=== PATIENT | male | born 1975 | race Caucasian/White ===

== ENCOUNTER → 2019-11-07 17:40 | Outpatient (CLI) | payer BC, SELFPAY ==
[2019-11-07 18:11] LABS: Basophils # 0.1 K/mm3 (0-0.2); Basophils % 0.8 % (0.1-2.0); Eosinophils # 0.1 K/mm3 (0.0-0.4); Eosinophils % 1.4 % (0.1-12.0); Hematocrit 51.6 % (42.0-52.0); Hemoglobin 17.9 g/dL (14.1-18.0); Lymphocytes # 2.6 K/mm3 (0.7-4.5); Lymphocytes % 31.1 % (10-50); Mean Corpuscular HGB Conc 34.7 g/dL (31.8-35.4); Mean Corpuscular Hemoglobin 32.7 pg (27.0-31.2); Mean Corpuscular Volume 94.1 fl (80-94); Mean Platelet Volume 8.3 fl (7.4-10.4); Monocytes # 0.3 K/mm3 (0.1-1.0); Neutrophils # 5.3 K/mm3 (1.8-7.8); Neutrophils % 62.7 % (37.0-80.0); Platelet Count 325 K/mm3 (142-424); Red Blood Count 5.48 M/mm3 (4.60-6.20); Red Cell Distribution Width 13.9 % (11.5-17.5); White Blood Count 8.4 K/mm3 (4.8-10.8)
[2019-11-07 18:57] LABS: Alanine Aminotransferase 61 U/L (12-78); Albumin Level 4.8 g/dl (3.5-5.0); Albumin/Globulin Ratio 1.5 (1.1-1.8); Alkaline Phosphatase 90 U/L (38-126); Anion Gap 16.8 mEq/L (5-15); Aspartate Amino Transferase 35 U/L (17-59); Blood Urea Nitrogen 15 mg/dl (9-20); Calcium 10.2 mg/dl (8.4-10.2); Carbon Dioxide 27 mmol/L (22.0-30.0); Chloride 105 mmol/L (98-107); Estimated Glomerular Filt Rate 82 ml/min (>60); GFR (African American) 99 ML/MIN (>60); Globulin 3.2 g/dL (1.3-3.2); Glucose 105 mg/dl (74-100); Potassium 4.8 mmoL/L (3.5-5.1); Sodium 144 mmol/L (136-145)
[2019-11-07 19:28] LABS: Thyroid Stimulating Hormone 0.45 uIU/mL (0.465-4.68)
[2019-11-07 19:47] LABS: Vitamin B12 701 pg/mL
== END ==
PROVIDERS: Visit Provider Family Medicine
DX: H50.00 Unspecified esotropia (principal); H49.20 Sixth [abducent] nerve palsy, unspecified eye; H53.2 Diplopia
CPT/HCPCS: 80053; 82607; 84436; 84443; 85025

== ENCOUNTER → 2019-11-20 11:10 | Outpatient (CLI) | payer BC, SELFPAY ==
--- NOTE | 2019-11-20 11:10 | MR_ITS ---
PROCEDURE: MR HEAD/BRAIN WO CON CLINICAL INDICATION: left lateral rectus muscle Pt c/o blurred vision with h/a x 1 week. COMPARISON: No exams were available for comparison TECHNIQUE: Routine multiplanar multi echo sequences are performed without gadolinium enhancement. FINDINGS: No midline shift, mass effect, intracranial hemorrhage, or hydrocephalus. The cerebellopontine angle, cerebellum, and brainstem have an unremarkable appearance. There is a small focal area of increased T2 signal in the subcortical region of the left frontal lobe and also a small T2 white matter hyperintensity in the right frontal lobe deep white matter. These are nonspecific. There is mucosal thickening of the ethmoid sinuses. A retention cyst is present in the floor the left maxillary sinus at 17 mm. There is mild mucosal thickening of the maxillary sinuses on both sides and also of the sphenoid sinus. No mastoid effusion is evident. The pituitary, optic chiasm, corpus callosum, and craniocervical junction have an unremarkable appearance. IMPRESSION: 1. There are 2 nonspecific T2 white matter hyperintensities 1 in the right frontal lobe and 1 in the left frontal lobe. These are nonspecific. Differential diagnosis would include ischemic gliotic foci from microvascular disease, sequela from migraine headache, or demyelinating process. Three month follow-up may confirm stability. 2. Mild sinus disease. 3. Otherwise negative MRI of the brain without contrast Dictated by: Florentino Kimbrough MD 11/21/2019 12:36 Florentino Kimbrough MD in [place] 11/21/2019 12:36
== END ==
PROVIDERS: PCP Family Medicine; Visit Provider Family Medicine
DX: H49.20 Sixth [abducent] nerve palsy, unspecified eye (principal); H53.2 Diplopia
CPT/HCPCS: 70551

== ENCOUNTER → 2019-11-28 12:53 | Outpatient (CLI) | payer BC, SELFPAY ==
--- NOTE | 2019-11-28 12:54 | MR_ITS ---
PROCEDURE: MR ANGIO HEAD WO CON CLINICAL INDICATION: new onset visual changes,migraine Pt. c/p blurred vision and h/a. Prior MRI Brain done 11/20/2019 COMPARISON: No exams were available for comparison TECHNIQUE: 3D [id number] images are obtained with multi slab reformats. FINDINGS: No aneurysm, AVM, or major intracranial occlusive process evident. Single-shot MRV shows decreased signal in the posterior and inferior aspect of the sagittal sinus. This could be technical in nature. If there is any concern for sinus thrombosis then CT angiogram may provide further evaluation. IMPRESSION: 1. Negative MRA of the brain. 2. Incomplete visualization of the posterior inferior aspect of the sagittal sinus nonspecific possibly artifactual and could be better evaluated with CT angiogram if clinically desired Dictated by: Florentino Kimbrough MD 11/29/2019 12:50 Florentino Kimbrough MD in [place] 11/29/2019 12:50
[2019-11-28 15:06] LABS: Cholesterol 245 mg/dl (140-200); HDL Cholesterol 53 mg/dl (40-60); Triglycerides 192 mg/dl (30-150); VLDL Cholesterol 38 mg/dL (0-40)
[2019-11-28 15:23] LABS: Direct LDL Cholesterol 154.62 mg/dL (100-129)
[2019-11-28 15:57] LABS: Hemoglobin A1C 5.7 % (4.0-6.0)
[2019-11-28 18:56] LABS: Chol/HDL Ratio 4.6 (1-3.5)
[2019-12-05 14:58] LABS: AChR Binding Abs 0.03 nmol/L (0.00-0.24); AChR Blocking Abs 24 % (0-25); AChR Modulating Ab <12 % (0-20); Anti-Striation (muscle) Abs Negative (Neg:<1:40)
== END ==
PROVIDERS: PCP Family Medicine; Visit Provider Specialist
DX: G43.009 Migraine without aura, not intractable, without status migrainosus (principal); H49.12 Fourth [trochlear] nerve palsy, left eye; R73.09 Other abnormal glucose; Z68.32 Body mass index [BMI] 32.0-32.9, adult; H49.10 Fourth [trochlear] nerve palsy, unspecified eye; R51 Headache
CPT/HCPCS: 36415; 70544; 80061; 83036; 84238; 86255

== ENCOUNTER 2023-11-04 13:18 | Emergency (ER) | payer BC, SELFPAY ==
[2023-11-04 13:25] VITALS: BP 165/95; PULSE 97; RESP 18; TEMP 37.8; O2SAT 98; BMI 25.1
--- NOTE | 2023-11-04 13:29 | EXP.UTC ---
Discharge Plan Disposition Patient Disposition: Home, Self-Care Condition: Good Prescriptions Prescriptions: New doxycycline monohydrate 100 mg tablet 100 mg PO BID Qty: 20 0RF prednisone 20 mg tablet 20 mg PO BID Qty: 10 0RF promethazine-DM 6.25-15 mg/5 mL syrup 5 ml PO Q6H PRN (Reason: Cough) Qty: 180 0RF albuterol sulfate 90 mcg/actuation HFA aerosol inhaler 2 inh inhalation Q8H PRN (Reason: shortness of breath or wheezing) Qty: 8.5 3RF No Action omeprazole [Prilosec] 20 mg Capsule,Delayed Release(Dr/Ec) 20 mg PO DAILY loratadine [Claritin] 10 mg Tablet 10 mg PO DAILY Referrals Follow up/Referrals: Ramon Bruce APRN [Primary Care Provider] - See instructions Clinical Impressions Clinical Impression: Bronchitis Instructions Patient Instructions: DI for Acute Bronchitis Print Language Print Language: Upper Sorbian Discharge ED Provider: Starr Pittman [facility] [place] HPI General Stated complaint: body ache chest congestion fever suazo Time Seen by Provider: 11/04/23 13:33 History of Present Illness Provider Complaint: Body aches, chills, fever, cough, congestion. Abrupt onset last night. Cough productive of brown-green sputum. Chest feels tight. Onset (ago): day(s) (1) Location: chest Relieving factors: none Exacerbating factors: none Associated symptoms: cough Treatments prior to arrival: none Related Data Home Medications ?Medication ?Instructions ?Recorded ?Confirmed loratadine 10 mg tablet (Claritin) 10 mg PO DAILY 11/04/23 11/04/23 omeprazole 20 mg capsule,delayed 20 mg PO DAILY 11/04/23 11/04/23 release Previous Rx's ?Medication ?Instructions ?Recorded albuterol sulfate 90 mcg/actuation 2 inh inhalation Q8H PRN shortness 11/04/23 aerosol inhaler of breath or wheezing #8.5 grams doxycycline monohydrate 100 mg 100 mg PO BID #20 tabs 11/04/23 tablet prednisone 20 mg tablet 20 mg PO BID #10 tabs 11/04/23 promethazine-DM 6.25 mg-15 mg/5 mL 5 ml PO Q6H PRN Cough #180 mL 11/04/23 oral syrup Allergies Allergy/AdvReac Type Severity Reaction Status Date / Time No Known Allergies Allergy Verified 12/12/19 14:32 [facility] Disclaimer: The information contained in this section may have been updated after the patient was seen, as this information can be updated by other users. Medical History (Updated 11/04/23 @ 13:40 by JESSIE Figueredo) Kidney stone Surgical History (Updated 11/04/23 @ 13:34 by Bridget Kelley RN) History of appendectomy Social History Smoking Status: Former smoker alcohol intake: never substance use type: denies use current occupational status: employed Travel in the last 8 weeks: None household members: significant other housing: house ROS Obtained: Yes All systems reviewed & no additional complaints except as documented Constitutional Constitutional: Reports body ache, Reports chills and Reports fever(s) Respiratory Respiratory: Reports chest congestion and Reports cough Physical Exam General General appearance: alert and in no apparent distress Head Head exam: atraumatic, normocephalic and normal inspection Eye Eye exam: Present normal appearance, PERRL and EOMI ENT ENT exam: Present normal exam, normal oropharynx, mucous membranes moist, TM's normal bilaterally and normal external ear exam Neck Neck exam: Present normal inspection, full ROM and trachea midline; Absent meningismus or lymphadenopathy Chest Chest inspection: Present normal inspection and symmetric chest wall rise; Absent tenderness Respiratory Respiratory exam: Absent respiratory distress Expanded Respiratory Exam Location: Lower: wheezes and rhonchi Cardiovascular Cardiovascular exam: Present regular rate and normal rhythm; Absent JVD Abdominal Exam Abdominal exam: Present soft and normal bowel sounds; Absent distention, tenderness or guarding Extremities Exam Extremities exam: Present normal inspection, full RO
[2023-11-04 13:42] VITALS: BP 165/95; PULSE 97; RESP 18; TEMP 37.8; O2SAT 98
[2023-11-04 14:15] LABS: Influenza A, PCR Not Detected (NotDetected); Influenza B, PCR Not Detected (NotDetected)
[2023-11-04 15:33] LABS: Coronavirus 19, PCR Detected (NotDetected)
== END 2023-11-04 13:46 | disposition home or self-care (01) ==
PROVIDERS: Emergency Provider Physician Assistant; PCP Nurse Practitioner Family
DX: U07.1 COVID-19 (principal); J20.9 Acute bronchitis, unspecified; R50.9 Fever, unspecified
CPT/HCPCS: 87636; 99204; 99212; G0463

== ENCOUNTER 2024-07-22 07:51 | Day surgery (SDC) | payer BC, SELFPAY ==
[2024-07-19 15:05] VITALS: BMI 22.3
[2024-07-22 08:40] VITALS: BP 170/113; PULSE 83; RESP 18; TEMP 36.3; O2SAT 99
[2024-07-22] MEDS: LACTATED RINGERS 1000ML 1,000 ML 50 ML IV (08:49)
[2024-07-22 09:19] VITALS: O2SAT 98
--- NOTE | 2024-07-22 09:21 | P.HP_ITS ---
History of Present Illness *Admission Date: 07/22/24 *Reason for visit:: Dyspepsia, reflux, bloating, nausea, weight loss and blood in stool *History of present illness: Mr. Puentes is a 48-year-old gentleman who is here for diagnostic EGD and colonoscopy. He has had a lot of nausea, vomiting, heartburn, bloating, generalized abdominal pain and weight loss. He has also noted blood in his stool. The examination is deemed medically necessary for diagnostic EGD and colonoscopy. The patient has been seen, interviewed and examined prior to the procedure by both myself and the anesthesia provider. [facility] Disclaimer: The information contained in this section may have been updated after the patient was seen, as this information can be updated by other users. Medical History Kidney stone Surgical History History of appendectomy Family History Other Family history of diabetes mellitus type II Family history of hepatitis Family history of hypertension Social History Smoking Status: Former smoker alcohol intake: never substance use type: denies use current occupational status: employed Travel in the last 8 weeks?: None household members: significant other housing: house caffeine: Yes Have you lived/traveled outside [place] in past 30 days?: No Contact w/someone who lives/traveled outside [place] past 30 days?: No Exposure to someone with infectious disease in past 14 days?: No Do you have a fever (greater than 100.4 F or 38 C)?: No Have you tested positive for COVID-19?: No Exposed to someone with COVID-19 in past 14 days?: No Do you have a sore throat?: No Do you have a cough?: No Do you have any weakness?: No Are you experiencing any nausea/vomitting?: No Do you have any diarrhea?: No Are you experiencing any unusual bleeding?: No Do you have any muscle aches/pain?: No Do you have any abdominal pain?: No Are you experiencing loss of taste or smell?: No Other Medical History Have you received the Pneumonia Vaccine: No Review of Systems Review of Systems Review of systems (narrative): Negative *Cardiovascular Comments: Negative *Gastrointestinal Comments: Negative *Genitourinary Comments: Negative *Musculoskeletal Comments: Negative *Neurologic Comments: Negative Meds Home Medications and Allergies Home Medications ?Medication ?Instructions ?Recorded ?Confirmed ?Type loratadine 10 mg tablet (Claritin) 10 mg PO DAILY 11/04/23 07/22/24 History omeprazole 20 mg capsule,delayed 20 mg PO DAILY 11/04/23 07/22/24 History release acetaminophen 500 mg tablet 500 mg PO Q6H PRN Mild Pain (Scale 07/15/24 07/22/24 History (Tylenol Extra Strength) Score 1-4) ibuprofen 125 mg-acetaminophen 250 1 tab PO Q8H PRN Mild Pain (Scale 07/15/24 07/22/24 History mg tablet (Advil Dual Action) Score 1-4) ibuprofen 200 mg capsule 200 mg PO Q6H PRN Mild Pain (Scale 07/15/24 07/22/24 History Score 1-4) naproxen sodium 220 mg tablet 220 mg PO DAILY 07/15/24 07/22/24 History (Aleve) sodium,potassium,mag sulfates 17.5 See Rx Instructions PO .COMPLEX 07/15/24 07/22/24 Rx gram-3.13 gram-1.6 gram oral soln #354 mL (Suprep Bowel Prep Kit) New Prescriptions to Start Prescriptions: Allergies Allergy/AdvReac Type Severity Reaction Status Date / Time No Known Allergies Allergy Verified 07/22/24 08:38 Exam Data for Last 24 hours Vital signs and Labs for Last 24 Hours: Temp Pulse Resp BP Pulse Ox O2 Del Method O2 Flow Rate 97.3 F L 83 18 170/113 H 99 Nasal Cannula 5 07/22/24 08:40 07/22/24 08:40 07/22/24 08:40 07/22/24 08:40 07/22/24 08:40 07/22/24 09:19 07/22/24 09:19 I & O for Last 24 hours: Intake & Output 07/19/24 07/20/24 07/21/24 07/22/24 23:59 23:59 23:59 23:59 Weight 160 lb *Routine HEENT Exam Head: Present normocephalic Eye: Present EOMI and PERRL ENT: Present mucous membranes moist *Routine Neck Exam Neck: Present supple *Routine Respiratory Exam Respiratory: Present CTA bilaterally *Routine Cardiovascular Exam Cardiovascular: Present RRR *Routine Abdominal Exam Abdominal: Present soft and normoactive bowel sounds; Absent tenderness *Routine Rectal Exam Rectal:: deferred *Routine Genitalia Exam Genitalia:: deferred *Routine Extremities Exam Extremities: Absent cyanosis, clubbing or edema *Routine Skin Exam Skin: Present warm; Absent rash *Routine Neurological Exam Neurological: Present alert and oriented X3 Assessment and Plan *Assessment and plan (1) Nausea and vomiting: Status: Acute Category: Medical Code(s): R11.2 - Nausea with vomiting, unspecified (2) Abnormal weight loss: Status: Acute Category: Medical Code(s): R63.4 - Abnormal weight loss (3) Heartburn: Status: Acute Category: Medical Code(s): R12 - Heartburn (4) Bloating: Status: Acute Category: Medical Code(s): R14.0 - Abdominal distension (gaseous) (5) Early satiety: Status: Acute Category: Medical Code(s): R68.81 - Early satiety (6) Acid reflux: Status: Acute Category: Medical Code(s): K21.9 - Gastro-esophageal reflux disease without esophagitis (7) Dysphagia: Status: Acute Category: Medical Code(s): R13.10 - Dysphagia, unspecified (8) Generalized abdominal pain: Status: Acute Category: Medical Code(s): R10.84 - Generalized abdominal pain Plan A/P: 1. Nausea/vomiting with abnormal weight loss, heartburn, bloating, early satiety and generalized abdominal pain is the preprocedural diagnosis. The patient also has had blood in stool early on and some dysphagia. The patient will be anesthetized/sedated using MAC sedation. The patient has been seen and examined. Cardiac and lung assessment prior to the examination is stable. Proceed with planned diagnostic EGD and colonoscopy.
--- NOTE | 2024-07-22 09:23 | HMH.PROCNOTE ---
[facility] Procedure Note Date: 07/22/24 Time: 09:34 Procedure Note:: Upper Endoscopy Procedure Report: Esophagogastroduodenoscopy with cold biopsies and TTS balloon dilation Endoscopost: Richmond Ponce II, MD Referring Physician: VANIA Loving Date of Procedure: July 22, 2024 Equipment: Olympus GIF 190 standard upper endoscope Sedation: MAC sedation Indications: Mr. Puentes is a 48-year-old gentleman who is here for diagnostic EGD and colonoscopy. The patient has had symptoms that started after his appendectomy. He reports nausea and some vomiting with generalized abdominal pain, bloating, gassiness, belching, early satiety, heartburn and some dysphagia. He did note some blood in his stools early on. He has lost 55 pounds since this started. He has never had a EGD or colonoscopy. He reports no family history of esophageal, gastric or colon cancer. He does have Gilbert's syndrome. Procedure: Prior to the procedure, a history and physical exam was performed, and patient's medications and allergies were reviewed. The risks, benefits and alternatives of the sedation and procedure were discussed with the patient. All questions were answered and informed consent was obtained. The patient was brought to the procedure room. Patient identification and proposed procedure were verified by the physician and the nurse. The patient was placed in a left lateral decubitus position and the scope was passed under direct vision. Throughout the procedure, the patient's blood pressure, pulse, and oxygen saturations were monitored continuously. The upper GI endoscopy was accomplished without difficulty. The patient tolerated the procedure well. Findings: The scope was passed directly into the upper esophagus and advanced to the fourth portion of duodenum and proximal jejunum. Cold biopsies were taken from the proximal jejunum x 4 for disaccharidase assay. The remaining post bulbar duodenum, ampulla and duodenal bulb were normal with normal mucosa and conniventes. The scope was withdrawn through a normal duodenal bulb and pylorus into the stomach. There was bile reflux with mild linear reactive gastropathy of the antrum. The body and fundus of the stomach were normal. Biopsies were taken from the antrum. Upon retroflexion there was a small 2 cm sliding hiatal hernia. The scope was then withdrawn into the esophagus. There was a serrated Z-line and biopsies were taken from the GE junction. There was no evidence of reflux esophagitis, rings, strictures or furrowing. There were tertiary contractions and evidence of moderate esophageal dysmotility. The entire esophagus was dilated to 60 Gambian/20 mm with a TTS hydrostatic balloon. There was mild resistance at the cricopharyngeus. The remainder of the esophageal mucosa was normal. Impression: 1. Nonerosive GERD with moderate esophageal dysmotility and small 2 cm sliding hiatal hernia 2. Bile reflux with mild linear antral reactive gastropathy Plan: I will follow-up the biopsies. I do feel that most of his symptoms of nausea and dyspepsia are related to and driven by lower intestinal gas pressure gradients/high gas pressure buildup resulting in backflow of bile and peptic fluid from the duodenum into the stomach (duodenal reflux). This gas production (carbon dioxide, hydrogen, methane, etc.) from the lower intestinal tract is the byproduct of colonic bacterial fermentation. This colonic fermentation occurs when there is more carbohydrate (dietary starches, sugars and high residue plant fiber) substrate that does not get digested (in the middle or small intestine) or occurs when there is colonic fecal buildup and colonic bacterial overgrowth. This indeed leads to bloating and the gas pressure buildup with gas pressure gradients that do drive backflow and dyspepsia. I will proceed with diagnostic colonoscopy.
--- NOTE | 2024-07-22 09:36 | HMH.PROCNOTE ---
[facility] Procedure Note Date: 07/22/24 Time: 09:51 Procedure Note:: Colonoscopy Procedure Report: Colonoscopy Endoscopist: Richmond Ponce II, MD Referring physician: VANIA Loving Date of Procedure: July 22, 2024 Equipment: Olympus 190 variable stiffness pediatric colonoscope Sedation: MAC sedation Indication: Mr. Puentes is a 48-year-old gentleman who is here for diagnostic EGD and colonoscopy. The patient has had symptoms that started after his appendectomy. He reports nausea and some vomiting with generalized abdominal pain, bloating, gassiness, belching, early satiety, heartburn and some dysphagia. He did note some blood in his stools early on. He has lost 55 pounds since this started. He has never had a EGD or colonoscopy. He reports no family history of esophageal, gastric or colon cancer. He does have Gilbert's syndrome. Procedure: Prior to the procedure, a history and physical exam was performed, and patient's medications and allergies were reviewed. The risks, benefits and alternatives of the sedation and procedure were discussed with the patient. All questions were answered and informed consent was obtained. The patient was brought to the procedure room. Patient identification and proposed procedure were verified by the physician and the nurse. The patient was placed in a left lateral decubitus position and the scope was passed under direct vision. Throughout the procedure, the patient's blood pressure, pulse, and oxygen saturations were monitored continuously. The colonoscopy was accomplished without difficulty. The patient tolerated the procedure well. Findings: On digital rectal examination there was normal rectal tone. There were no external hemorrhoids. The prostate was 2+, smooth, soft, symmetric without nodules. The colonoscope was introduced through the anal canal to the rectum and advanced to the cecum. The ileocecal valve and appendiceal orifice were identified. The scope was advanced a short distance into the ileum which appeared grossly normal. The scope was then withdrawn into the colon. The cecum, ascending, transverse, descending, sigmoid and rectum were grossly normal. There were no mucosal abnormalities identified. Upon retroflexion within the rectum there were grade 1-2 internal hemorrhoids. The preparation was excellent throughout with [place] Preparation Score of 9. The cecal time was 10 minutes. Impression: 1. Normal colonoscopy with intubation of the terminal ileum 2. Grade 1-2 internal hemorrhoids Plan: I will discuss the findings with the patient and family. The patient will not require surveillance colonoscopy again for 10 years by ACS guidelines. I do feel that he has obstipation related symptoms and we will discuss treatment options.
[2024-07-22 09:53] VITALS: BP 97/48; PULSE 81; RESP 16; TEMP 36.4; O2SAT 100
[2024-07-22 10:03] VITALS: BP 89/47; PULSE 78; RESP 16; O2SAT 99
[2024-07-22 10:13] VITALS: BP 111/66; PULSE 71; RESP 16; O2SAT 99
[2024-07-22 10:23] VITALS: BP 109/67; PULSE 76; RESP 16; O2SAT 99
[2024-07-26 15:42] LABS: Disclaimer Notes (.); Interpretation Notes (.); Lactase 10.57 (>/= 14.0); Maltase 188 (>/= 110.0); Palatinase 14.83 (>/= 8.5); Reference Notes (.); Sucrase 35.54 (>/= 25.0)
== END 2024-07-22 10:28 | disposition home or self-care (01) ==
PROVIDERS: PCP Nurse Practitioner Family; Visit Provider Internal Medicine Gastroenterology
PROC: 0DJ08ZZ Inspection of Upper Intestinal Tract, Via Natural or Artificial Opening Endoscopic (ICD-10-PCS; CPT 45378; principal; 2024-07-22 09:30)
DX: R11.2 Nausea with vomiting, unspecified (principal); R63.4 Abnormal weight loss; R12 Heartburn; R14.0 Abdominal distension (gaseous); R68.81 Early satiety; R13.10 Dysphagia, unspecified; R10.84 Generalized abdominal pain; K92.1 Melena; R14.2 Eructation; K21.9 Gastro-esophageal reflux disease without esophagitis; K44.9 Diaphragmatic hernia without obstruction or gangrene; K22.4 Dyskinesia of esophagus; K31.9 Disease of stomach and duodenum, unspecified; K64.8 Other hemorrhoids
CPT/HCPCS: 43239; 43249; 45378; 82657; C1726; J2704; J7120

== ENCOUNTER 2024-08-16 07:26 | Outpatient (CLI) | payer BC, SELFPAY ==
--- OUTSIDE RECORDS SUMMARY | 2024-08-16 07:29 | XMS_ITS | Data Portability ---
Author Organization [facility] [address] [facility] CLOSED Address [address] [facility] [address] [place] [address] Assessment Encounter Date Assessment Date Assessment LastModified by Organization Details LastModified Time 02/01/2017 02/01/2017 CT stone protocol ordered to evaluate stone burden to decide if repeat ESWL versus PCNL is warranted. Patient will be called with results and further plans of procedures pending CT results. At time of office evaluation we discussed the risks and benefits of PCNL versus ESWL. [email or web address] Not available 02/01/2017 16:10:07 03/17/2017 03/17/2017 Small stone fragments remain but do not require repeat PCNL. Consider ureteroscopy in future if desired. Not available 03/22/2017 12:41:35 Plan of Treatment Reminders Order Date Submit Date Provider Last Modified By Organization Details Last Modified Time Details Appointments None recorded. Lab urinalysis , dipstick, auto 2017 018 [email or web address] [facility], [address], [address], [place], [address], 8 12:41:37 urinalysis , dipstick, auto 2016 017 [email or web address] [facility], [address], [address], [place], [address], 7 13:20:39 Referral None recorded. Procedures None recorded. Surgeries None recorded. Imaging CT, abdomen + pelvis, w/o contrast - Auth # [id number] carleen 02/01--2016 017 DIANE [facility], [address], [address], [place], [address], 7 15:09:43 Medication Orders oxycodone- acetaminop hen 5 mg-325 mg tablet 2016 017 [email or web address] Not available 8 10:30:13 Patient TargetsNo targets recorded. Patient Instructions Encounter Date Encounter Id Patient Instructions Last Modified By Organization Details Last Modified Time 02/01/2017 [id number] healthy together DIANE Not availabl e 02/01/2017 19:59:05 kidney stone: care instructions DIANE Not available 02/01/2017 19:59:07 learning about diet for kidney stone prevention DIANE Not available 02/01/2017 19:59:08 03/17/2017 [id number] kidney stone: care instructions [email or web address] Not available 03/22/2017 12:41:37 learning about diet for kidney stone prevention [email or web address] Not available 03/22/2017 12:41:37 Reason for Referral None Reported. Results Created Date Observation Date Name Description Value Unit Range Abnormal Flag Note LastModifiedBy Organization Detail LastModifiedTime 03/17/19 18 03/17/2017 urina lysis , dipst ick, auto Unknown Analyte Yellow Not Available [facility] [address], [place], [address], 03/17/2017 10:31:15 03/17/19 18 03/17/2017 urina lysis , dipst ick, auto Unknown Analyte Clear Not Available [facility] [address], [place], [address], 03/17/2017 10:31:15 03/17/19 18 03/17/2017 urina lysis , dipst ick, auto Unknown Analyte 1.020 Not Available [facility] [address], [place], [address], 03/17/2017 10:31:15 03/17/19 18 03/17/2017 urina lysis , dipst ick, auto Unknown Analyte 5.0 Not Available [facility] [address] [facility] [address], [place], [address], 03/17/2017 10:31:15 03/17/19 18 03/17/2017 urina lysis , dipst ick, auto Unknown Analyte 25 Glen/ul Trace Not Available [facility] [address], [place], [address], 03/17/2017 10:31:15 03/17/19 18 03/17/2017 urina lysis , dipst ick, auto Unknown Analyte Negati ve Not Available [facility] [address] [place] [address] [address], [place], [address], 03/17/2017 10:31:15 03/17/19 18 03/17/2017 urina lysis , dipst ick, auto Unknown Analyte Negtiv e Not Available [facility] [address] [place] [address] [address], [place], [address], 03/17/2017 10:31:15 03/17/19 18 03/17/2017 urina lysis , dipst ick, auto Unknown Analyte Normal Not Available [facility] [address] [place] [address] [address], [place], [address], 03/17/2017 10:31:15 03/17/19 18 03/17/2017 urina lysis , dipst ick, auto Unknown Analyte Negati ve Not Available [facility] [address], [place], [address], 03/17/2017 10:31:15 03/17/19 18 03/17/2017 urina lysis , dipst ick, auto Unknown Analyte Normal Not Available [facility] [address], [place], [address], 03/17/2017 10:31:15 03/17/19 18 03/17/2017 urina lysis , dipst ick, auto Unknown Analyte Negati ve Not Available [facility] [address], [place], [address], 03/17/2017 10:31:15 03/17/19 18 03/17/2017 urina lysis , dipst ick, auto Unknown Analyte Negati ve Not Available [facility] [address] [place] [address] [address], [place], [address], 03/17/2017 10:31:15 03/17/19 18 03/17/2017 urina lysis , dipst ick, auto Unknown Analyte Clean Catch Not Available [facility] [address] [place] [address] [address], [place], [address], 03/17/2017 10:31:15 03/17/19 18 03/17/2017 urina lysis , dipst ick, auto Unknown Analyte Automa miguel Not Available [facility] [address], [place], [address], 03/17/2017 10:31:15 02/02/20 17 02/01/2017 urina lysis , dipst ick, auto Unknown Analyte [place] Not Available [facility] [address] [facility] [address], [place], [address], 02/01/2017 13:15:50 02/02/20 17 02/01/2017 urina lysis , dipst ick, auto Unknown Analyte Clear Not Available [facility] [address], [place], [address], 02/01/2017 13:15:50 02/02/20 17 02/01/2017 urina lysis , dipst ick, auto Unknown Analyte 1.025 Not Available [facility] [address] [place] [address] [address], [place], [address], 02/01/2017 13:15:50 02/02/20 17 02/01/2017 urina lysis , dipst ick, auto Unknown Analyte 5.0 Not Available [facility] [address], [place], [address], 02/01/2017 13:15:50 02/02/20 17 02/01/2017 urina lysis , dipst ick, auto Unknown Analyte 500 [address] (++) Not Available [facility] [address], [place], [address], 02/01/2017 13:15:50 02/02/20 17 02/01/2017 urina lysis , dipst ick, auto Unknown Analyte Positi ve Not Available [facility] [address] [place] [address] [address], [place], [address], 02/01/2017 13:15:50 02/02/20 17 02/01/2017 urina lysis , dipst ick, auto Unknown Analyte 500 mg/dl (+++) Not Available [facility] [address] [facility] [address], [place], [address], 02/01/2017 13:15:50 02/02/20 17 02/01/2017 urina lysis , dipst ick, auto Unknown Analyte Normal Not Available [facility] [address] [facility] [address], [place], [address], 02/01/2017 13:15:50 02/02/20 17 02/01/2017 urina lysis , dipst ick, auto Unknown Analyte Negati ve Not Available [facility] [address] [facility] [address], [place], [address], 02/01/2017 13:15:50 02/02/20 17 02/01/2017 urina lysis , dipst ick, auto Unknown Analyte 8 mg/dl Not Available [facility] [address] [place] [address] [address], [place], [address], 02/01/2017 13:15:50 02/02/20 17 02/01/2017 urina lysis , dipst ick, auto Unknown Analyte 3 mg/dl (++) Not Available [facility] [address] [place] [address] [address], [place], [address], 02/01/2017 13:15:50 02/02/20 17 02/01/2017 urina lysis , dipst ick, auto Unknown Analyte 250 Vladimir/ul Not Available [facility] [address] [place] [address] [address], [place], [address], 02/01/2017 13:15:50 02/02/20 17 02/01/2017 urina lysis , dipst ick, auto Unknown Analyte Clean Catch Not Available [facility] [address], [place], [address], 02/01/2017 13:15:50 02/02/20 17 02/01/2017 urina lysis , dipst ick, auto Unknown Analyte Automa miguel Not Available [facility] [address], [place], [address], 02/01/2017 13:15:50 02/02/20 17 02/01/2017 cultu re, urine results [facility] e: CCUR Colle cted: 02/01 16:39 Site: [facility] stacie : 02/01 20:19 URINE SCREE N(CUL TURE) FINAL 02/03 09:40 02/02 PRELI MINAR Y:No growt h day 1. 02/03 FINAL : No growt h day 2. Not Available [facility] [address] [facility], [place], [address], 02/03/2017 09:40:08 02/01/20 17 01/25/2017 XR, kidne y + urete r + bladd er No observ ation record ed. [email or web address] [facility] (Registration ) [address] , [place], [address], 02/01/2017 13:34:19 02/07/20 17 02/01/2017 CT, abdom en + pelvi s, w/o contr ast No observ ation record ed. [email or web address] [facility] [address] [facility] [address], [place], [address], 02/09/2017 12:37:17 03/07/20 17 03/03/2017 fluor oscop y (PROC ) No observ ation record ed. [facility] [address], [place], [address], 03/07/2017 14:12:06 03/17/19 18 03/17/2017 XR, kidne y + urete r + bladd er No observ ation record ed. [email or web address] Not Available 07/2017 15:53:39 Result Notes None recorded. Problems No Known Problems Procedures Surgical History Date Name Laterality Status Provider Name and Address Organization Details Recorded Time 03/03/20 17 PERCUTANEOUS NEPHROLITHOTOMY (SURG) completed [facility] 03/07/2017 12:11:44 03/03/20 17 PERCUTANEOUS NEPHROSTOMY TUBE PLACEMENT W/ INTERVENTIONAL RADIOLOGIST (SURG) completed [facility] 03/07/2017 12:11:24 03/03/20 17 PERCUTANEOUS NEPHROSTOMY TUBE PLACEMENT W/ INTERVENTIONAL RADIOLOGIST (SURG) completed [facility] 03/07/2017 10:51:30 03/03/20 17 PERCUTANEOUS NEPHROLITHOTOMY (SURG) completed [facility] 03/07/2017 09:54:27 [facility] 13:14:41 Imaging Results None recorded. Procedure Notes None recorded. Medical Equipment None Reported. Allergies No known drug allergies Medications Name Sig Start Date Stop Date Status Note LastModified by Organization Details LastModified Time Pyridium 100 mg tablet Take 1 tablet 3 times a day by oral route. 03/17 completed Not Available Not Available Not Available hydrocodone 10 mg-acetamino phen 325 mg tablet Take 1 tablet every 4 hours by oral route. 03/17 completed Not Available Not Available Not Available Zofran 4 mg tablet Take 2 tablets twice a day by oral route. 03/17 completed Not Available Not Available Not Available oxycodone-ac etaminophen 5 mg-325 mg tablet Take 1 tablet every 4-6 hours by oral route. 03/17 completed Not Available Not Available Not Available cefdinir 300 mg capsule Take 1 capsule every 12 hours by oral route. 03/17 completed Not Available Not Available Not Available Vitals Date Recorded Body height Body mass index (BMI) Body weight Heart rate Systolic blood pressure Diastolic blood pressure Provider Name and Address Organization Details Last Updated DateTime 8 180.34 cm 31 kg/m2 319372. 51 g 82 /min 155 mm[Hg] 91 mm[Hg] Alyson Clifford [facility] 8 10:29:39 Date Recorded Body height Body mass index (BMI) Body weight Heart rate Systolic blood pressure Diastolic blood pressure Provider Name and Address Organization Details Last Updated DateTime 7 180.34 cm 31 kg/m2 194218. 51 g 71 /min 148 mm[Hg] 94 mm[Hg] Chiquita Gomez [facility] 7 13:12:11 Social History Question Answer Notes LastModified by Organizat ion Details LastModified Time Tobacco Smoking Status [facility] 02/01/2017 13:14:11 Marital Status Single [email or web address] Informatio n not available 02/01/2017 What Was The Date Of Your Most Recent Tobacco Screening? 03/17/2017 Information n ot available 04/30/2019 Sex: Unknown Functional Status Question Answer Note LastModified by Organization D etails LastModified Time What is your level of alcohol consumption? None [email or web address] Information not available 02/01/2017 What is your occupation? [email or web address] Information not available 02/01/2017 Mental Status None recorded. Family History Relationship Description Onset Age of this Age Resolved Age Notes LastModified by Organization Details LastModified Time Father No current problems or disability [email or web address] Not available 02/01 13:13:59 Mother No current problems or disability [email or web address] Not available 02/01 13:13:59 Medical History Condition Response Kidney Stones Y Past Encounters Encounter ID Performer Location Encounter Start Date Encounter Closed Date Diagnosis/Indication Diagnosis SNOMED-CT Code Diagnosis ICD10 Code Diagnosis Note [id number] MD PALLAVI GAITAN [facility] [address] [place] [address] 02/01/2017 12:25:50 02/01/2017 16:35:08 Kidney stone 23364861 N20.0 [id number] MD PALLAVI GAITAN [facility] [address] [place] [address] 03/17/2017 09:36:25 03/27/2017 12:50:11 Kidney stone 67725272 N20.0 Health Concerns Section Related Observation LastModified by Organization Detai ls LastModified Time None Recorded Concern Status LastModified by Organization Details LastModified Time None Recorded Advance Directives Directive None Recorded Payers Insurance Date Sequence Insurance Name Policy Number Policy Bai Covered Member ID Bai Member ID Guarantor Name 02/05/2020 1 [employer] Dave Puentes [id number] Dave Puentes 03/14/2017 2 [facility] Dave Puentes [id number] Dave Puentes 03/14/2017 1 [facility] (PPO) [id number] Dave Puentes [id number] Dave Puentes Notes Date Note Type Note Provider Name and Address Organization Details Recorded Time 02/01/2017 text/html 41-year-old male in the office for consultation and evaluation of left urolithiasis. He was referred by Dr. Worrell for large burden left stones. He had ESWL and stent placed. He continues to have large stone burden per Dr. Worrell's notes. He has been referred for evaluation for possible PCNL. He continues to have flank pain, frequency, urgency associated with indwelling stents. He does have history of urolithiasis with prior treatment. He is taken hydrocodone with some improvement of his pain. AMARILYS MAJOR MD [address] [place] [address], [address], [facility] 02/01/2017 16:13:39 03/17/2017 text/html 41-year-old male in the office for follow-up evaluation after left PCNL on March 03, 2017. He continues to have intermittent left flank pain. KUB today shows small stones layered and inferior aspect of the kidney. No ureteral stones identified. No fevers or chills. No hematuria. AMARILYS MAJOR MD [address] [place] [address] [place], [address], [facility] 03/22/2017 12:41:59
--- NOTE | 2024-08-16 08:00 | CT_ITS ---
FINAL REPORT TECHNIQUE: Thin section axial images are obtained through the abdomen and pelvis after intravenous contrast. Reconstruction images were obtained from the axial data. Exam was performed using dose reduction techniques. This study was performed with techniques to keep radiation doses as low as reasonably achievable (ALARA). Individualized dose reduction techniques using automated exposure control or adjustment of mA and/or kV according to the patient's size were employed. CLINICAL HISTORY: Abdominal pain and weight loss COMPARISON: None FINDINGS: LUNG BASES: Lung bases are clear. Heart size is normal. LIVER: Homogeneous. No focal lesion. GALLBLADDER/BILIARY SYSTEM: Gallbladder is present. No gallstones. No biliary dilatation. SPLEEN: Unremarkable. PANCREAS: Unremarkable. ADRENALS: Unremarkable. KIDNEYS/URETERS/BLADDER: The left kidney is small when compared to the right kidney. There are nonobstructing stones noted in the kidneys bilaterally, more prominent on the left than on the right. There is a peripherally calcified margin of the left kidney, that may be secondary to remote infection or subcapsular hematoma. Unremarkable urinary bladder. GI TRACT: No small bowel obstruction or dilatation. The appendix has likely been resected. There is moderate to large stool present in the proximal colon. PELVIC ORGANS: Unremarkable for age. LYMPH NODES/RETROPERITONEUM/MESENTERY: No lymphadenopathy. No abdominal aortic aneurysm. ABDOMINAL WALL: The abdominal wall is intact. FREE FLUID: No ascites. BONES: No acute osseous abnormality. IMPRESSION: No acute intra-abdominal or intrapelvic abnormality is identified. Small left kidney, of uncertain etiology. Left greater than right nonobstructing renal stones are noted. Reviewed, Interpreted and Dictated by Gricelda Finley MD Transcribed by Antonina Burkett Authenticated and . [facility]
[2024-08-16] MEDS: SODIUM CHLORIDE 0.9% 10ML SYR (RAD ONLY) 10 ML IV (08:17)
[2024-08-16] MEDS: IOPAMIDOL-370 (76%);100ML BOTTLE 75 ML IV (08:18)
[2024-08-16] MEDS: BARIUM SULFATE(READI-CAT2);450ML BOTTLE 450 ML PO (08:18)
== END 2024-08-16 23:59 | disposition home or self-care (01) ==
LOC: RAD 07:26
PROVIDERS: PCP Nurse Practitioner Family; Visit Provider Internal Medicine Gastroenterology
DX: N27.0 Small kidney, unilateral (principal); N20.0 Calculus of kidney
CPT/HCPCS: 74177; Q9967